=== PATIENT | male | born 1990 | race Caucasian/White ===

== ENCOUNTER 2016-11-16 20:37 | Emergency (ER) | payer BC ==
[~2016-11-16] VITALS: Ht 182.9 cm; Wt 102.3 kg
[2016-11-16 20:39] VITALS: BP 133/83; PULSE 97; TEMP 97.9
[2016-11-16] MEDS ORDERED: BACTRIM DS 8001 TAB PO (21:03)
[2016-11-16] MEDS ORDERED: ULTRAM 50MG TAB50 MG PO (21:03)
== END 2016-11-16 21:35 | disposition home or self-care (01) ==
LOC: COL.ER 20:37
DX: L03.114 Cellulitis of left upper limb (principal)

== ENCOUNTER → 2020-02-24 | Outpatient (CLI) | payer BC ==
[~2020-02-24] MED LIST: BACTRIM DS 8001 TAB PO; ULTRAM 50MG TAB50 MG PO
== END ==
LOC: ZCOL.LAB 17:13
DX: Z20.828 Contact with and (suspected) exposure to other viral communicable diseases (principal)

== ENCOUNTER 2022-01-10 17:54 | Emergency (ER) | payer SELFPAY ==
[~2022-01-10] VITALS: Ht 182.9 cm; Wt 100.0 kg
[2022-01-10 18:00] VITALS: TEMP 97.9
[2022-01-10 18:25] LABS: BASO # 0.1 K/mm3 (0.0-0.2); EOS # 0.1 K/mm3 (0.0-0.7); EOS % 1.4 % (0.0-4.0); GRAN # 2.6 K/mm3 (1.4-6.5); GRAN % 53.6 % (42.2-75.2); HEMATOCRIT 43.6 % (42.0-52.0); HEMOGLOBIN 14.8 g/dl (13.5-18.0); LYMPH # 1.9 K/mm3 (1.2-3.4); LYMPH % 37.5 % (20.0-51.0); MEAN CELL VOLUME 92 fl (80.0-100.0); MEAN CORPUSCULAR HEMOGLOBIN 31 pg (27-31); MEAN CORPUSCULAR HGB CONC 34 g/dl (33.0-37.0); MEAN PLATELET VOLUME 9.7 fl (7.4-10.4); MONO # 0.3 K/mm3 (0.1-0.6); MONO % 6.3 % (1.7-9.3); PLATELET COUNT 273 K/mm3 (130-400); RED BLOOD COUNT 4.74 M/mm3 (4.20-5.60); REDCELL DISTRIBUTION WIDTH-CV 12.4 % (11.5-14.5)
[2022-01-10 18:41] LABS: ALANINE AMINOTRANSFERASE 16 U/L (0-55); ALBUMIN 3.6 gm/dL (3.5-5.0); ALKALINE PHOSPHATASE 73 U/L (40-150); ANION GAP 10 mmol/L (7-16); AST,SGOT 11 U/L (5-34); BILIRUBIN,TOTAL 0.4 mg/dL (0.2-1.2); BLOOD UREA NITROGEN 13 mg/dL (9-21); CALCIUM 8.8 mg/dL (8.4-10.2); CARBON DIOXIDE 23 mmol/L (22-29); CHLORIDE 105 mmol/L (98-107); CREATININE, serum 0.97 mg/dL (0.72-1.25); GLUCOSE 84 mg/dL (70-99); LIPASE 15 U/L (8-78); POTASSIUM 3.2 mmol/L (3.5-4.5); SODIUM 138 mmol/L (136-145); TOTAL PROTEIN 6.3 gm/dL (6.2-8.1)
[2022-01-10 18:48] LABS: TROPONIN-I < 0.010 ng/mL (0.00-0.033)
[2022-01-10 20:27] LABS: COLLECTION METHOD CLEAN CATCH
[2022-01-10 20:33] LABS: MUCOUS Present (NOT PRESENT); SQUAMOUS EPITHELIAL None Seen /hpf (0-10); URINE APPEARANCE Clear (CLEAR/HAZY); URINE BACTERIA None Seen /hpf (NONE SEEN); URINE BLOOD Negative (NEGATIVE); URINE COLOR Yellow (YELLOW); URINE GLUCOSE Negative (NEGATIVE); URINE KETONE Negative (NEGATIVE); URINE NITRATE Negative (NEGATIVE); URINE PROTEIN(semi-quant) Negative (NEGATIVE); URINE RBC 0-2 /hpf (0-2); URINE UROBILINOGEN 0.2 E.U/dL (0.2-1.0)
[2022-01-10 21:41] VITALS: BP 158/115; PULSE 64
== END 2022-01-10 21:48 | disposition home or self-care (01) ==
LOC: COL.ER 17:54
PROVIDERS: Nurse Practitioner Primary Care
DX: R07.89 Other chest pain (principal); F41.9 Anxiety disorder, unspecified; R03.0 Elevated blood-pressure reading, without diagnosis of hypertension; Z28.311 Partially vaccinated for COVID-19

== ENCOUNTER 2024-02-08 16:18 | Emergency (ER) | payer BC ==
[~2024-02-08] VITALS: Ht 182.9 cm; Wt 113.6 kg
[~2024-02-08 16:18] MED LIST changes: +TOPROL XL 50MG50 MG PO
[2024-02-08] MEDS ORDERED: NS 1,000 ML IV ONE (16:45)
[2024-02-08 16:59] LABS: BASO # 0.1 K/mm3 (0.0-0.2); BASO % 0.6 % (0.0-2.0); EOS # 0.1 K/mm3 (0.0-0.7); EOS % 1.2 % (0.0-4.0); GRAN # 4.6 K/mm3 (1.4-6.5); GRAN % 58.9 % (42.2-75.2); HEMATOCRIT 42.8 % (42.0-52.0); HEMOGLOBIN 15.5 g/dl (13.5-18.0); LYMPH # 2.4 K/mm3 (1.2-3.4); LYMPH % 30.9 % (20.0-51.0); MEAN CELL VOLUME 92 fl (80.0-100.0); MEAN CORPUSCULAR HEMOGLOBIN 33 pg (27-31); MEAN CORPUSCULAR HGB CONC 36 g/dl (33.0-37.0); MEAN PLATELET VOLUME 9.6 fl (7.4-10.4); MONO # 0.6 K/mm3 (0.1-0.6); MONO % 8.1 % (1.7-9.3); PLATELET COUNT 314 K/mm3 (130-400); RED BLOOD COUNT 4.66 M/mm3 (4.20-5.60); REDCELL DISTRIBUTION WIDTH-CV 12.5 % (11.5-14.5)
[2024-02-08 17:15] LABS: ALANINE AMINOTRANSFERASE 23 U/L (0-55); ALBUMIN 4.2 g/dL (3.5-5.0); ALKALINE PHOSPHATASE 63 U/L (40-150); ANION GAP 11 mmol/L (7-16); AST,SGOT 14 U/L (5-34); BILIRUBIN,TOTAL 0.5 mg/dL (0.2-1.2); BLOOD UREA NITROGEN 17 mg/dL (9-21); CALCIUM 9.4 mg/dL (8.4-10.2); CHLORIDE 104 mEq/L (98-107); CREATININE, serum 1.24 mg/dL (0.72-1.25); GLUCOSE 83 mg/dL (70-99); POTASSIUM 3.7 mEq/L (3.5-4.5); SODIUM 140 mEq/L (136-145); TOTAL PROTEIN 7.2 g/dl (6.2-8.1)
[2024-02-08 17:25] LABS: TROPONIN-I < 0.010 ng/mL (0.00-0.033)
[2024-02-08 17:57] VITALS: BP 114/80; PULSE 74; TEMP 97.8
== END 2024-02-08 18:00 | disposition home or self-care (01) ==
LOC: COL.ER 16:18
PROVIDERS: Physician Assistant
DX: R07.89 Other chest pain (principal); I10 Essential (primary) hypertension; Z79.899 Other long term (current) drug therapy; Z87.891 Personal history of nicotine dependence
CPT/HCPCS: J7030